=== PATIENT | female | born 1965 | race Caucasian/White ===

== ENCOUNTER → 2016-07-10 | Outpatient (CLI) | payer OTHER ==
[~2016-07-10] VITALS: Ht 170.2 cm; Wt 62.1 kg
[~2016-07-10] MED LIST: BIRTH CONTROL; CYMBALTA60 MG PO; EFFEXOR XR150 MG PO; GRALISE600 MG PO; HYDROCODON-ACE1 EA12 PO; HYDROCODON-ACE1 EAC5 PO; LYRICA 75 MG CA75 MG PO; LYRICA PO; LYRICA225 MG PO; LYRICA300 MG PO; NABUMETONE 500500 M1 PO; NEURONTIN 300300 M1 PO; OXYCODONE HCL10 MG PO; OXYCODONE-ACET1 EAC2 PO; PERCOCET 10-321 EACH PO; TIZANIDINE HCL 22 M1 PO; TIZANIDINE PO; VENTOLIN HFA 1818 GM; WELLBUTRIN SR150 MG PO
--- NOTE | ~2016-07-10 | HPC ---
[facility] [address] [place] [address] PAIN MANAGEMENT CONSULTATION Name: SUSAN VENEGAS Room #: REG [facility]..#: [id number] Admission: 07/10/16 Attend Phys: Migue Oconnor DO Discharge: Date of : 69 Report #: [id number] THIS REPORT FOR: //name// CC: AARON Fuentes DO REFERRING PHYSICIAN: Gallo Fuentes DO. CHIEF COMPLAINT: Neck pain, bilateral upper back pain, left upper extremity pain with paresthesias. HISTORY OF PRESENT ILLNESS: As you know, the patient is a very pleasant 50-year-old female who returns today in followup visit for medication management. She states her pain has been better controlled over the past couple of months with medications. The pain that she is experiencing is aching in nature, exacerbated with activities, improves with medications, lying down. She places pain score 3/10 with the use of medication, 8/10 without medication. She returns today requesting refill on medications. She is denying any side effects to medication at this time including somnolence, decreased mental acuity, disorientation, confusion and constipation. ALLERGIES: SULFA. CURRENT MEDICATIONS: Bupropion 150 mg once a day, duloxetine 60 mg once a day, Oxycodone IR 10 mg every 6 hours p.r.n. for pain, tizanidine 2 mg up to 3 times a day, Lyrica 225 mg twice a day, nabumetone 500 mg 3 times a day, albuterol 2 puffs q. 4 hours p.r.n., control pill once a day. SOCIAL HISTORY: The patient denies tobacco, alcohol, IV or illicit drug use. She is unaccompanied today. IMAGING: No new imaging available. PHYSICAL EXAMINATION: VITAL SIGNS: Blood pressure 118/81, pulse 73, respiratory rate 14, unlabored. The patient is 100% on room air, height 5 feet 7 inches tall, weight 137 pounds, BMI calculated 21.5. GENERAL: Well developed, well nourished, well hydrated 50-year-old female appearing her stated age. She is placing pain score at approximately 3/10. HEENT: Normocephalic, atraumatic. Pupils equal, round, reactive to light. Extraocular muscles are intact. Sclerae are nonicteric without injection. NEUROLOGIC: Cranial nerves 2-12 grossly intact. Speech is fluent. EXTREMITIES: Show no clubbing, no cyanosis, no edema. MUSCULOSKELETAL: There is some palpatory tenderness again noted over the paraspinal musculature of the cervical and upper thoracic area, no spinous process tenderness. Spurling's test remains positive left. Muscle bulk and [address] [address] PAIN MANAGEMENT CONSULTATION Name: SUSAN VENEGAS Room #: REG [facility].#: [id number] Admission: 07/10/16 Attend Phys: Migue Oconnor DO Discharge: Date of : 69 Report #: [id number] tone is symmetrical in the upper extremities. Deep tenderness reflexes are equal and symmetrical at biceps, brachioradialis and triceps. ASSESSMENT: 1. Cervical radiculopathy. 2. Displacement of cervical intervertebral disk with radiculopathy. 3. Cervical spondylosis with radiculopathy. 4. Chronic intractable pain. PLAN: 1. The patient returns today in followup visit for medication management. She is denying any side effects to medication and does find them beneficial for pain control. She reports that without the medication, her pain would be a level of 7-8/10 and near debilitating; with medications, her pain is around 3/10 and very tolerable. She requests refills on the medication at this time in hopes of maintaining analgesic benefit. 2. The patient was provided a prescription of Lyrica 225 mg dose 1 tab p.o. b.i.d., given #60 tablets, 2 refills, 3 months' worth of medication. 3. The patient was provided refills for prescription on nabumetone 500 mg dose 1 tab p.o. b.i.d. #60 with 2 refills, 3 months' worth of medication. 4. The patient was provided a prescription of tizanidine 2 mg dose 1 tab p.o. t.i.d., #90, 2 refills. 5. The patient was provided a prescription of oxycodone 10 mg dose 1 tab every 6 hours p.r.n. for pain, #120, ____ 3 months' worth of medication. The patient was advised to use this medication only when pain is intolerable, not to rely on the medication prophylactically. 6. The patient will return to our clinic in 3 months for medication management, earlier if she wishes to undergo interventional treatments. By: [id number] Migue Oconnor DO /nt
[2016-07-10 08:33] VITALS: BP 118/81
== END ==
LOC: PAIN 06:45
DX: M79.622 Pain in left upper arm (principal); M47.22 Other spondylosis with radiculopathy, cervical region; M50.10 Cervical disc disorder with radiculopathy, unspecified cervical region

== ENCOUNTER → 2016-10-09 | Outpatient (CLI) | payer OTHER ==
[~2016-10-09] VITALS: Ht 170.2 cm; Wt 62.7 kg
--- NOTE | ~2016-10-09 | HPC ---
[facility] [address] [place] [address] PAIN MANAGEMENT CONSULTATION Name: RUBISUSAN JEWEL [id number] Admission: 10/09/16 Attend Phys: Migue Oconnor DO Discharge: Date of : 69 Report #: [id number] THIS REPORT FOR: //name// CC: AARON Oconnor DATE OF SERVICE: 10/09/2016 CHIEF COMPLAINT: Neck pain, bilateral upper back pain, left upper extremity pain and paresthesias. HISTORY OF PRESENT ILLNESS: As you know, the patient is a very pleasant 51-year-old female, who returns today in followup visit, now reporting pain score 3/10. She states pain is located mainly in the cervical region, left greater than right, bilateral upper back and radiates into her left upper extremity. She indicates pain is aching and constant in sensation with exacerbations of ____, numbness and tingling. She places current pain score at 3/10. States activities exacerbate symptoms. Medications and lying down tends to improve pain. She has returned to our clinic for medication management. She is denying any side effects to medication at this time. Does feel it beneficial and wishing to continue the therapy. She denies new injury, new trauma that may have lead to progression of symptoms and has had no changes in her medical history since our last visit. ALLERGIES: SULFA. CURRENT MEDICATIONS: Tizanidine 2 mg every 8 hours p.r.n. for muscle spasms, Lyrica 225 mg twice a day, oxycodone 10 mg 1 tab every 6 hours p.r.n. for pain, nabumetone 500 mg 3 times a day, bupropion 150 mg once a day, duloxetine 60 mg once a day, albuterol 2 puffs every 4 hours control pill once a day. SOCIAL HISTORY: The patient denies tobacco, alcohol, IV or illicit drug use. She is working. She is unaccompanied today. IMAGING: No new imaging available. PHYSICAL EXAMINATION: VITAL SIGNS: Blood pressure 139/93, pulse 93, respiratory rate 16, unlabored. The patient is 100% on room air, height 5 feet 7 inches tall, weight 138.2 pounds, BMI calculated 21.6. GENERAL: Well developed, well nourished, well hydrated 51-year-old female, who appears her stated age. She is placing current pain score at 3/10. HEENT: Normocephalic, atraumatic. Pupils equal, round, reactive to light. Extraocular muscles are intact. Sclerae nonicteric, without injection. [address] [address] PAIN MANAGEMENT CONSULTATION Name: EKATERINAKATEYSUSAN Room #: REG [facility].#: [id number] Admission: 10/09/16 Attend Phys: Migue Oconnor DO Discharge: Date of : 69 Report #: [id number] EXTREMITIES: Show no clubbing, no cyanosis, no edema. MUSCULOSKELETAL: Spurling's test positive left, negative right. Muscle bulk and tone equal and symmetrical in upper extremities. She is intact to light touch from C5 through T1 dermatomes. Cervical provocation testing including extension, rotation, and lateral flexion to the left causes intensification of cervical radicular symptoms. ASSESSMENT: 1. Cervical radiculopathy. 2. Displacement of a cervical intervertebral disk with radiculopathy. 3. Cervical spondylosis with radiculopathy. 4. Chronic intractable pain. PLAN: 1. The patient returns today in followup visit requesting refill on medications. She feels medications are working well for pain control. She denies any side effects to medication at this time and does feel it is working beneficially for pain control. She wishes to continue the medication at current dosing. She is considering surgical options if her symptoms do not continue to improve, but over the past 3 months, her symptoms have slowly and progressively begin to brock. She returns today in followup visit for refills of her current therapy. 2. The patient was provided a prescription of nabumetone 500 mg dose 1 tab p.o. b.i.d. I have given the patient #60 tablets, 2 refills. The patient denies any dyspepsia, worsening blood pressure, lower extremity edema with the use of this medication. 3. The patient was provided a prescription of tizanidine 2 mg dose 1 tab p.o. t.i.d., I have given the patient #90, two refills. She was not to drive or operate heavy equipment while on this medication. She is aware that this can cause somnolence, decrease mental acuity, disorientation and confusion. 4. The patient was provided a prescription of Lyrica 225 mg dose 1 tab p.o. b.i.d., #60, two refills. This appears to be working well. No specific side effects to the medication. We will continue the therapy for the next 3 months. 5. The patient was provided a prescription of oxycodone 10 mg dose 1 tab p.o. q.i.d., #120, releases of today, 4 weeks from today, 8 weeks from today, 3 months' worth of medication. 6. We will see the patient back in followup visit in 3 months for medication therapy or earlier if she needs to undergo a cervical epidural injection or discuss other treatment options. By: [id number] Migue Oconnor DO /nt
[2016-10-09 10:09] VITALS: BP 139/93
== END ==
LOC: PAIN 07:04
DX: M47.22 Other spondylosis with radiculopathy, cervical region (principal); M50.10 Cervical disc disorder with radiculopathy, unspecified cervical region; R20.9 Unspecified disturbances of skin sensation

== ENCOUNTER → 2017-04-30 | Outpatient (CLI) | payer OTHER ==
[~2017-04-30] VITALS: Ht 170.2 cm; Wt 65.5 kg
[~2017-04-30] MED LIST changes: +LYRICA150 MG PO
--- NOTE | ~2017-04-30 | HPC ---
[facility] [place] [address] [place] [address] PAIN MANAGEMENT CONSULTATION Name: SUSAN VENEGASN [facility] [id number] Admission: 04/30/17 Attend Phys: Migue Oconnor DO Discharge: Date of : 69 Report #: [id number] THIS REPORT FOR: //name// CC: FLEX Lopez DATE OF SERVICE: 04/30/2017 REFERRING PHYSICIAN: Dr. Flex Young. CHIEF COMPLAINT: Neck pain, bilateral upper back pain, left upper extremity pain and paresthesias. HISTORY OF PRESENT ILLNESS: As you know, the patient is an extremely pleasant 51-year-old female who returns today in followup visit for medication management. She indicates pain medications are working beneficially for pain control. The patient indicates pain level today of 2/10. States that her pain is exacerbated with activity, improves with medications and lying down. She has been provided today's appointment to return for refill on medications. She is requesting a possible change in her Lyrica therapy as she is beginning to experience increasing nerve related pain again today. ALLERGIES: No known drug allergies. CURRENT MEDICATIONS: Pregabalin 150 mg twice a day, tizanidine 2 mg p.r.n., oxycodone 10 mg every 6 hours p.r.n. for pain, bupropion 150 mg once a day, duloxetine 60 mg once a day, albuterol 2 puffs q. 4 hours, control pill once a day. IMAGING: No new imaging available. SOCIAL HISTORY: The patient denies tobacco, alcohol, IV or illicit drug use. She is working, not receiving workmen's compensation, unaccompanied. PQRS: The patient does have known osteoarthritis. No rheumatoid arthritis. She indicates pain intensity 2/10. She is not a fall risk, has not had a fall in the past 3 months. She is not on blood thinners. She is not hypertensive. She has been on opioids for longer than 6 months and she is under contract with [facility]. She has a low risk from assessment standpoint of opioid addiction. Her functional assessment pain impact score 23/70 indicating mild to moderate interference of daily activities secondary to pain. PHYSICAL EXAMINATION: VITAL SIGNS: Blood pressure 148/75, pulse 87, respiratory rate 16, unlabored. The patient is 100% on room air. Height 5 feet 7 inches tall, weight is 144.4 [place] [address] PAIN MANAGEMENT CONSULTATION Name: SUSAN VENEGAS Room #: REG [facility]#: [id number] Admission: 04/30/17 Attend Phys: Migue Oconnor DO Discharge: Date of : 69 Report #: [id number] pounds, BMI calculated 22.6. GENERAL: Well-developed, well-nourished, well-hydrated 51-year-old female who appears her stated age. She is placing current pain score at 2/10. HEENT: Normocephalic, atraumatic. Pupils equal, round, reactive to light. Extraocular muscles are intact. Sclerae nonicteric, without injection. EXTREMITIES: Show no clubbing, no cyanosis, no edema. MUSCULOSKELETAL: Upper extremity strength appears equal and symmetrical 5/5, intact to light touch from C5-T1 dermatomes. Spurling's test positive left, negative right. Cervical provocation testing is met with increasing neck pain and mild restriction of motion. ASSESSMENT: 1. Chronic cervical radiculopathy. 2. Displacement of cervical intervertebral disk with radiculopathy. 3. Cervical spondylosis with radiculopathy. 4. Chronic intractable pain. PLAN: 1. The patient has returned today in followup visit for continuation of medication therapy. The patient feels medications are working beneficially for pain control, but does wish to make a change in the Lyrica therapy, increasing slightly to address daytime pain levels. We will make those changes today and refill her nabumetone, tizanidine and oxycodone at current dosing. 2. The patient was provided a prescription of nabumetone 500 mg dose 1 tab p.o. b.i.d. I have given the patient #60 tablets, 2 refills, 3 months' worth of medication. 3. The patient was provided a prescription of oxycodone immediate release 10 mg dose 1 tab every 8 hours p.r.n. for pain, #120, releases of today, 4 weeks from today, 8 weeks from today. 4. The patient was provided prescription of tizanidine 2 mg dose 1 tab p.o. q. 8 hours p.r.n. muscle spasms, #90, 2 refills. 5. The patient was provided refill prescription on Lyrica 150 mg dose 1 tab p.o. b.i.d., #60, two refills. 6. The patient was provided samples of Lyrica 75 mg dose. She is to increase the dose to 150 mg morning, 75 mg at noon, 150 mg at night for the next 7 days, then increase to 150 mg t.i.d. if necessary. The patient will contact our clinic if she does reach this level and notes good efficacy. If she is doing well with a 150, 75 and 150, she will contact our clinic and we will make 75 mg tablets available for the noon dose. 7. The patient will return to our clinic in 3 months or earlier if adjustments need to be made. <ELECTRONICALLY SIGNED> By: Migue Oconnor DO 05/20/17 [id number] Migue Oconnor DO /nt
[2017-04-30 10:46] VITALS: BP 148/75
== END ==
LOC: PAIN 07:01
DX: G89.29 Other chronic pain (principal); M47.22 Other spondylosis with radiculopathy, cervical region; M19.90 Unspecified osteoarthritis, unspecified site; F11.90 Opioid use, unspecified, uncomplicated

== ENCOUNTER → 2017-07-15 | Outpatient (CLI) | payer OTHER ==
[~2017-07-15] VITALS: Ht 170.2 cm; Wt 66.3 kg
--- NOTE | ~2017-07-15 | HPC ---
[facility] [address] [place] [address] PAIN MANAGEMENT CONSULTATION Name: EKATERINASUSAN DEL TORO JEWEL [facility] [id number] Admission: 07/15/17 Attend Phys: Migue Oconnor DO Discharge: Date of : 69 Report #: [id number] THIS REPORT FOR: //name// CC: AARON Oconnor DATE OF SERVICE: 07/15/2017 CHIEF COMPLAINT: Neck pain, bilateral upper back pain, left upper extremity pain with paresthesias. HISTORY OF PRESENT ILLNESS: As you know, the patient is extremely pleasant 51-year-old female who returns today in followup visit for medication management to address cervical radicular symptoms secondary to the displacement of a cervical intervertebral disk. The patient has done very well with medication management being able to avoid more aggressive treatment options such as epidural injections and surgical options. She returns today requesting refills on her Lyrica, tizanidine and oxycodone. She is also requesting refill on nabumetone. She indicates no side effects to the medication at this time and wishes to continue therapy. She is noticing good benefit of upwards of 85% improvement. She returns with pain score no greater than 1-2/10. ALLERGIES: No known drug allergies. CURRENT MEDICATIONS: Tizanidine 2 mg dose every 8 hours p.r.n. for pain, Lyrica 200 mg twice a day, oxycodone 10 mg p.o. q. 6h. p.r.n. for pain, nabumetone 500 mg twice a day, bupropion 150 mg twice a day, duloxetine 60 mg once a day, albuterol 2 puffs q. 4h. p.r.n. and control pill once a day. SOCIAL HISTORY: The patient denies tobacco, alcohol or IV illicit drug use. She is working, not receiving workmen's compensation. She is unaccompanied today. IMAGING: No new imaging available. PHYSICAL EXAMINATION: VITAL SIGNS: Blood pressure 147/88, pulse 104, respiratory rate 14 and unlabored. The patient is 99% on room air. Height 5 feet 7 inches tall, weight 147.2 pounds and BMI calculated 22.9. GENERAL: Well-developed, well-nourished, well-hydrated 51-year-old female. She appears stated age and placing current pain score 1-2/10. HEENT: Normocephalic and atraumatic. Pupils are equal, round and reactive to light. Extraocular muscles are intact. Sclerae are nonicteric without injection. NEUROLOGIC: Cranial nerves 2-12 are grossly intact. Speech fluent. The [address] [address] PAIN MANAGEMENT CONSULTATION Name: SUSAN VENEGAS [facility] [id number] Admission: 07/15/17 Attend Phys: Migue Oconnor DO Discharge: Date of : 69 Report #: [id number] patient deemed an excellent historian. LUNGS: Clear. No wheeze, rhonchi or rales. CARDIOVASCULAR: Regular. No gallop or rub. ABDOMEN: Soft, nontender and nondistended. EXTREMITIES: Show no clubbing, no cyanosis and no edema. MUSCULOSKELETAL: Upper extremity strength appears equal and symmetrical 5/5, muscle bulk and tone equal and symmetrical in the upper extremities. Spurling's test positive left and negative right. Deep tendon reflexes are symmetrical at biceps, brachioradialis and triceps. ASSESSMENT: 1. Cervical radiculopathy. 2. Displacement of cervical intervertebral disk with radiculopathy. 3. Cervical spondylosis with radiculopathy. 4. Chronic intractable pain. PLAN: 1. The patient returns today in followup visit requesting medication management to assist for pain control. She states her medications are working beneficially for pain control providing greater than 75% improvement in symptoms. She returns requesting refill on medications for the next 3 months. 2. The patient was provided a prescription of Lyrica 150 mg dose 1 tab p.o. b.i.d. I have given the patient #180, which is 3 months' worth of medication. We have provided a two refill restriction on this medication. The patient will provide this to her mail order pharmacy for the 3-month prescriptions to be provided. 3. The patient was provided prescription of tizanidine 2 mg dose 1 tab p.o. q. 8 hours p.r.n. muscle spasms. I have given the patient #270 tablets, 3 months' worth of medication. There were two refills on this medication as well. She will provide this to her mail order prescription pharmacy. 4. The patient was provided a prescription of nabumetone 500 mg dose 1 tab p.o. b.i.d., #60. I have given the patient 2 refills, 3 months' worth of medication. I have advised the patient to watch for escalating blood pressure, lower extremity edema with the use of this medication. At present, the patient denies any side effects. 5. The patient was provided a prescription of oxycodone IR 10 mg dose 1 tab p.o. t.i.d. to q.i.d. I have given the patient #120 tablets, releases of today, 4 weeks from today, 8 weeks from today, 3 months' worth of medication. 6. We will see the patient back in followup visit 3 months from today for medication management and to adjust medications if necessary. We are pleased to see the patient is doing well with 75% improvement in overall pain with medication management. By: [id number] Migue Oconnor DO /nt
[2017-07-15 09:05] VITALS: BP 147/88
== END ==
LOC: PAIN 06:57
DX: M47.22 Other spondylosis with radiculopathy, cervical region (principal)

== ENCOUNTER → 2017-11-26 | Outpatient (CLI) | payer BC ==
[~2017-11-26] VITALS: Ht 170.2 cm; Wt 64.0 kg
--- NOTE | ~2017-11-26 | HPC ---
[facility] [address] [place] [address] PAIN MANAGEMENT CONSULTATION Name: RUBISUSAN LYNN [id number] Admission: 11/26/17 Attend Phys: Migue Oconnor DO Discharge: Date of : 69 Report #: [id number] THIS REPORT FOR: //name// CC: AARON Oconnor Referring Physician DATE OF SERVICE: 11/26/2017 CHIEF COMPLAINT: Neck pain, bilateral upper back pain, left upper extremity pain and paresthesias. HISTORY OF PRESENT ILLNESS: As you know, the patient is an extremely pleasant 52-year-old female who returns today in followup visit for medication management to address cervical radicular symptoms secondary to displacement of a cervical intervertebral disk. The patient has done very well with medication management, utilizing Lyrica for baseline neuropathic pain control, also utilizing tizanidine for muscle spasms, periodic use of oxycodone for pain control works well for the patient. She is placing pain score no greater than 2/10. She returns today in followup visit requesting refill on medications. She has had no changes in medical history except for a possible increase in blood pressure. She stopped her nabumetone, which apparently improved her blood pressure mildly. Blood pressure today shows a slightly elevated diastolic at 83. She returns today in followup visit for medication management. ALLERGIES: No known drug allergies. CURRENT MEDICATIONS: Tizanidine 2 mg every 8 hours p.r.n. for pain secondary to muscle spasms, Lyrica 200 mg twice a day, oxycodone 10 mg p.o. q.6 hours p.r.n. pain, bupropion 150 mg twice a day, duloxetine 60 mg once a day, albuterol 2 puffs q.4 hours p.r.n., control pill once a day. SOCIAL HISTORY: The patient denies tobacco, alcohol, IV or illicit drug use. She is working, not receiving workmen's compensation, unaccompanied today. IMAGING: No new imaging available. PHYSICAL EXAMINATION: VITAL SIGNS: Blood pressure 136/69, pulse 72, respiratory rate 16 and unlabored. The patient is 100% on room air. Height 5 feet 7 inches tall, weight 141.2 pounds, BMI calculated 22.1. GENERAL: Well-developed, well-nourished, well-hydrated 52-year-old female appearing her stated age, placing current pain score 2/10. HEENT: Normocephalic, atraumatic. Pupils equal, round, reactive to light. EXTREMITIES: Show no clubbing, no cyanosis, no edema. MUSCULOSKELETAL: Upper extremity strength is equal and symmetrical 5/5, muscle [address] [address] PAIN MANAGEMENT CONSULTATION Name: SUSAN VENEGAS [facility]#: [id number] Admission: 11/26/17 Attend Phys: Migue Oconnor DO Discharge: Date of : 69 Report #: [id number] bulk and tone equal and symmetrical when comparing left upper extremity to right upper extremity. Spurling test positive left, negative right. Cervical provocation testing is met with mild increase in pain, mild restriction of motion with rotation and lateral flexion. ASSESSMENT: 1. Cervical radiculopathy. 2. Displacement of cervical intervertebral disk with radiculopathy. 3. Cervical spondylosis with radiculopathy. 4. Complicated medication management. 5. Chronic intractable pain. PLAN: 1. The patient returns today in followup visit for continuation of medication therapy. As advised on her last visit, the patient discontinued the use of nabumetone, did note mild improvement in blood pressure. This does not appear to be the source of her essential hypertension, but it may have been contributing mildly. Recommend that the patient remain off this medication. 2. The patient has requested a refill of medication in the form of Lyrica, tizanidine, and oxycodone. She is doing very well with these medications and requests refills for the next 3 months. 3. We reviewed the fact that opiate medications are being used to provide analgesia adequate to support activities of daily living, not attempting to achieve a specific pain score on the 0-10 Visual Analog Scale. The current opiate medications are providing sufficient analgesia to allow the patient to participate in activities of daily living. The patient is not exhibiting any aberrant behavior suggestive of drug diversion. The patient is not having any adverse reactions to medications. The patient is not suffering from daytime somnolence or mental acuity changes. The patient is managing opiate-induced constipation with appropriate aded-fow-pzbpsic agents and dietary considerations. The patient was counseled on concern for caution with operating a motor vehicle while using opiate medications. A physical exam was performed and the patient's functional status was evaluated. All patients with back pain were advised against the bed rest greater than 4 days and were advised to return to normal activities. Pain score assessment was noted and the treatment plan was reviewed with the patient. All current medications, both prescribed and OTC were reviewed and reconciled on the electronic medical record. Tobacco screening was accomplished and smoking cessation was advised when indicated. BMI was noted and diet/exercise modification was recommended for all patients following outside normal parameters. I reviewed with the patient today their responsibilities to safeguard prescription medications, reviewed their responsibility to utilize medications only as prescribed by the physician. They are to seek and receive pain [facility] [address] [place] [address] PAIN MANAGEMENT CONSULTATION Name: RUBISUSANRAFAELA HOLLOWAY [facility] #: [facility]#: [id number] Admission: 11/26/17 Attend Phys: Migue Oconnor DO Discharge: Date of : 69 Report #: [id number] medications only from 1 physician group ( [facility]). They are to use 1 pharmacy and keep the clinic informed if they change pharmacies. Their responsibilities include making followup visits in a timely fashion and to avoid abrupt discontinuation of medication usage. Their responsibilities further include bringing their medications (bottles from the pharmacy with residual pills) to the visit for possible confirmation of pill counts and the patient understands it is their responsibility to submit to random drug screens to ensure both that the medications prescribed are present, and that no other controlled substances are present. All prescriptions provided today were generated electronically. 4. The patient was provided prescription of oxycodone IR 10 mg dose 1 tab p.o. q.i.d., given #120, releases of today, 4 weeks from today, 8 weeks from today, 3 months' worth of medication. 5. The patient was provided a prescription of Lyrica 150 mg dose 1 tab p.o. b.i.d. I have given the patient #180 tablets, which is a 3-month prescription. 6. The patient was provided a prescription of tizanidine 2 mg dose 1 tab p.o. q.8 hours p.r.n. muscle spasms, #270, which is a 3-month prescription. 7. We will see the patient back in followup visit in 3 months for medication therapy, earlier if interventional treatments need to be addressed or possible changes in medication therapy. I am glad to see the patient is doing well. We will see her back in 3 months. <ELECTRONICALLY SIGNED> By: Migue Oconnor DO 12/02/17 1259 [id number] Migue Oconnor DO /nt
[2017-11-26 08:33] VITALS: BP 136/69
== END ==
LOC: PAIN 06:38
DX: M47.22 Other spondylosis with radiculopathy, cervical region (principal); G89.4 Chronic pain syndrome; M50.10 Cervical disc disorder with radiculopathy, unspecified cervical region; Z79.899 Other long term (current) drug therapy

== ENCOUNTER → 2018-06-02 | Outpatient (CLI) | payer OTHER ==
[~2018-06-02] VITALS: Ht 170.2 cm; Wt 61.1 kg
[2018-06-02 08:54] VITALS: BP 128/90
--- NOTE | 2018-06-02 09:02 | NUR ---
Pain Clinic Assessment: 1. History of Osteoarthritis: NECK History of Rheumatoid Arthritis: Not Applicable 2. Height: 5 ft. 7 in. 170.2 cm. Weight: 134.8 lb. oz. 61.145 kg. Patient's BMI: 21.1 3. Vital Signs: BP: 128/90 Pulse: 92 Resp: 14 Temp: 02 Sat: 100 ECG Mon: 4. Pain Intensity: 3 5. Fall Risk: Dizziness: N Needs help standing or walking: N Fallen in the last 3 months: N Fall risk comments: 6. Patient on Blood Thinner: None 7. History of Hypertension: N 8. Opioid Therapy greater than 6 weeks: Y Opiate Contract Signed: 04/10/16 9. Risk Assessment Tool Provided: LOW RISK 03/05 10. Functional Assessment Tool: 11. Recreational Drug Use: Never Drug Type: Tobacco Use: Never Smoker Tobacco Type: Amount or Packs/day: How Many Years: Alcohol Use: Yes Frequency: Monthly Quant:
--- NOTE | 2018-06-04 08:41 | HPC ---
[facility] [address] PAIN MANAGEMENT CONSULTATION Name: SUSAN VENEGASN Room #: REG [facility].#: [id number] Admission: 06/02/18 ������������������ Attend Phys: Migue Oconnor DO Discharge: ������������������ Date of : 69 Report #: [id number] THIS REPORT FOR: //name// CC: AARON Lopez DATE OF SERVICE: 06/02/2018 CHIEF COMPLAINT: Neck pain, bilateral upper back pain, left upper extremity pain with paresthesias. HISTORY OF PRESENT ILLNESS: As you know, the patient is an extremely pleasant 52-year-old female who returns today in followup visit indicating concerns of mentation issues increasing "brain fog" and difficulty with concentration. She believes the medication she is currently on is exacerbating symptoms. She continues to experience pain level of 3/10 for which the patient indicates this is tolerable for her. She is concerned that her medications may be causing some of her cognition issues. She returns today to make adjustments in this therapy. ALLERGIES: No known drug allergies. CURRENT MEDICATIONS: Tizanidine 2 mg every 8 hours p.r.n. secondary to muscle spasms, Lyrica 150 mg b.i.d., oxycodone 10 mg q.6h. p.r.n. pain, duloxetine 60 mg once a day, albuterol 2 puffs q.4h. p.r.n., control pills. SOCIAL HISTORY: The patient denies tobacco, alcohol, IV or illicit drug use. She is working, not receiving workmen's compensation, unaccompanied today. IMAGING: No new imaging available. PHYSICAL EXAMINATION: VITAL SIGNS: Blood pressure 128/90, pulse 92, respiratory rate 14 and unlabored. The patient is 100% on room air. Height 5 feet 7 inches tall, weight 134.8 pounds, BMI calculated 21.1. GENERAL: Well-developed, well-nourished, well-hydrated 52-year-old female appearing stated age, placing current pain score at 3/10. HEENT: Normocephalic, atraumatic. Pupils equal, round, reactive to light. EXTREMITIES: Show no clubbing, no cyanosis, and no edema. MUSCULOSKELETAL: Upper extremity strength remains symmetrical 5/5, muscle bulk and tone symmetrical in comparing left upper extremity to right. Spurling's test remains positive left, negative right. Cervical provocation testing, mild restriction of motion both left and rightward. No change in overall pain. Palpatory tenderness over the paraspinal musculature of the cervical region. ASSESSMENT: [address] [address] PAIN MANAGEMENT CONSULTATION Name: EKATERINAJESSIEJOSE APrestonSUSAN [facility] #: [facility] [id number] Admission: 06/02/18 ������������������ Attend Phys: Migue Oconnor DO Discharge: ������������������ Date of : 69 Report #: [id number] 1. Cervical radiculopathy. 2. Displacement of a cervical intervertebral disk with radiculopathy. 3. Cervical spondylosis with radiculopathy. 4. Complicated medication management. 5. Chronic intractable pain. PLAN: 1. The patient has returned today in followup visit with concerns that the combination of Lyrica and duloxetine are working synergistically to cause cognition issues. There is a strong possibility this may be the case. I recommend begin weaning of her Lyrica initially. If we are able to clear from the cognition issues and the "brain fog" the patient is experiencing. We will then determine if her pain does change at all with the reduction in the Lyrica. If pain does change, we could potentially increase her duloxetine to address radicular symptoms from the cervical region. The patient has definitely noted changes in her mood that she contributes to this "brain fog." I am hopeful that reduction in Lyrica will resolve this problem. There is a potential that the medications are causing greater side effect than at previous evaluations due to changes in volume of distribution and increase in the Cymbalta of late and potentially improvement in overall pain. Following adjustments were made to the medications. 2. The patient will reduce her Lyrica from 150 mg b.i.d. to 100 mg dose for 6 days, then reduce to 75 mg dose b.i.d. for 6 days, then reduce to 75 mg p.o. at bedtime for 6 days, then potentially off the medication entirely. The patient was given samples of Lyrica 50 mg and 75 mg tablets to be able to titrate as directed. The patient was advised anytime during this reduction of medication. If she notes worsening of symptoms or concerns of potential withdrawal from the Lyrica, she is to contact the clinic immediately. We will watch for any changes in mentation as we reduce the therapy. If we were able to reduce the medication and her cognition and "brain fog" improves, we may stabilize the dose at a lower Lyrica formulation. 3. The patient was provided prescription of tizanidine 2 mg dose 1 tab p.o. t.i.d., I have given the patient 3 months' worth of medication and a prescription of #270 with refills. 4. The patient was provided prescription of nabumetone 500 mg dose 1 tab p.o. b.i.d., #60, two refills. 5. The patient will contact our clinic during the weaning of the Lyrica to advise of efficacy and reduction in her cognition complaints. We will await this phone call when she reaches an efficacious level of the Lyrica or off the medication entirely with hopeful improvement in her mentation. Again, the patient was given phone numbers to contact our clinic with questions or concerns. ��������������������������������������������� <ELECTRONICALLY SIGNED> ���������������������������������������� By: Migue Oconnor DO ��������������������������������������������� 06/04/18 0841 [id number] Migue Oconnor DO /nt
== END ==
LOC: PAIN 06:48
DX: M47.22 Other spondylosis with radiculopathy, cervical region (principal); G89.4 Chronic pain syndrome; Z79.899 Other long term (current) drug therapy